=== PATIENT | female | born 1985 | race Hispanic/Latino ===

== ENCOUNTER → 2020-07-06 | Outpatient (CLI) | payer OTHER ==
[~2020-07-06] MED LIST: IOPAMIDOL 300 MG/ML 15ML VIAL IT ONE
--- NOTE | 2020-07-06 12:03 | Diagnostic Imaging Report ---
EXAM: Fluoroscopically guided hysterosalpingogram INDICATION: Oligomenorrhea COMPARISON: None available. 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 No acute osseous injury. HYSTEROSALPINGOGRAM: Using sterile technique and Betadine antiseptic, a speculum was inserted into the vagina and the cervix visualized. The HSG catheter was inserted via the cervix into the uterus and the retention balloon inflated. Contrast was injected through the HSG catheter demonstrating opacification of the uterus and both fallopian tubes. There is free flow of contrast into the pelvis consistent with bilateral tubal patency. No filling defects are observed in the uterus or fallopian tubes. Multiple images were obtained. The HSG catheter was subsequently removed. The images and results were reviewed with the patient. The patient was discharged from the preprocedural area in good condition. Fluoroscopy Time: 1.0 minutes Radiation dose: 9.7 mGy IMPRESSION: Unremarkable hysterosalpingogram with patent bilateral tubal flow of contrast and no tubal or uterine filling defects. Signed by: Ángel Pro MD on 07/06/2020 12:00 PM
== END ==
LOC: DX 08:25
PROVIDERS: ATTEND Obstetrics & Gynecology
DX: N91.5 Oligomenorrhea, unspecified (principal)
CPT/HCPCS: 74740; 81025; Q9967